=== PATIENT | female | born 1970 | race African-American/Black ===

== ENCOUNTER 2018-04-25 18:43 | Emergency (ER) | payer OTHER ==
[~2018-04-25] VITALS: Ht 167.6 cm; Wt 62.6 kg
[~2018-04-25 18:43] MED LIST: ALPR-475 PO; AMLO5TAB2 PO; CEFD300C37 PO; CIPR500T87 PO; HYDR-3240 PO; LORA-446 PO; METR500T PO; ONDA4TAB7 PO; OXYC-302 PO; OXYC1TAB PO; PROP40TA PO; SULF1TAB24 PO
[2018-04-25 18:47] VITALS: BP 158/100
== END 2018-04-25 19:49 | disposition home or self-care (01) ==
LOC: ED 19:10
DX: S92.514A Nondisplaced fracture of proximal phalanx of right lesser toe(s), initial encounter for closed fracture (principal); G43.909 Migraine, unspecified, not intractable, without status migrainosus; C80.1 Malignant (primary) neoplasm, unspecified; W22.03XA Walked into furniture, initial encounter; Y93.89 Activity, other specified; Y99.8 Other external cause status; Y92.009 Unspecified place in unspecified non-institutional (private) residence as the place of occurrence of the external cause
CPT/HCPCS: 99284

== ENCOUNTER → 2018-05-11 | Outpatient (CLI) | payer OTHER ==
[~2018-05-11] MED LIST changes: -AMLO5TAB2 PO; +AMLO5TAB7 PO; +BUTA-177 PO
== END | disposition home or self-care (01) ==
LOC: STAR 13:07
PROVIDERS: ATTEND Specialist
DX: Z02.9 Encounter for administrative examinations, unspecified (principal)

== ENCOUNTER 2018-05-17 08:00 | Day surgery (SDC) | payer OTHER ==
[2018-05-11 14:06] VITALS: BP 152/96
[~2018-05-17] VITALS: Ht 167.6 cm; Wt 61.7 kg
[2018-05-17] MEDS ORDERED: LACTATED RINGERS 1,000 ML IV SCH (08:34)
[2018-05-17 08:38] VITALS: BP 152/96
[2018-05-17] MEDS ORDERED: LIDOCAINE-MPF 1%, 2ML INFIL ONE (09:00)
[2018-05-17] MEDS ORDERED: THROMBIN 5,000 UNIT VIAL TP ONE (09:57)
[2018-05-17] MEDS ORDERED: BUPIVACAINE 0.25% ONE (09:57)
[2018-05-17] MEDS ORDERED: MIDAZOLAM 1 MG/ML, 2ML ONE (09:58)
[2018-05-17] MEDS ORDERED: FENTANYL PF 100 MCG/2ML ONE (09:58)
[2018-05-17] MEDS ORDERED: DEXAMETHASONE 4 MG/ML, 1ML ONE (10:06)
[2018-05-17] MEDS ORDERED: ONDANSETRON 2MG/ML, 2ML ONE (10:06)
[2018-05-17] MEDS ORDERED: PROPOFOL 10 MG/ML, 20ML ONE (10:06)
[2018-05-17] MEDS ORDERED: BUPIVACAINE/PF-EPI 0.25% 1:200K ONE (10:17)
[2018-05-17] MEDS ORDERED: ONDANSETRON 2MG/ML, 2ML IV PRN (10:30)
[2018-05-17] MEDS ORDERED: MORPHINE SULFATE 4 MG/ML, 1ML IVPush PRN (10:30)
[2018-05-17] MEDS ORDERED: LABETALOL 5MG/ML, 20ML IV PRN (10:30)
[2018-05-17] MEDS ORDERED: FENTANYL PF 100 MCG/2ML IV PRN (10:30)
[2018-05-17] MEDS ORDERED: OXYcodone 5 MG/5 ML ORAL.SOL UDC PO PRN (10:30)
[2018-05-17] MEDS ORDERED: PROMETHAZINE 25 MG/ML, 1ML IV PRN (10:30)
[2018-05-17] MEDS ORDERED: hydrALAzine 20 MG/ML, 1ML IV PRN (10:30)
[2018-05-17] MEDS ORDERED: ACETAMINOPHEN 325 MG TABLET PO PRN (10:30)
[2018-05-17] MEDS ORDERED: PROMETHAZINE 25 MG/ML, 1ML IM PRN (10:30)
== END 2018-05-17 12:50 | disposition home or self-care (01) ==
LOC: OUT 08:00
PROVIDERS: ATTEND Specialist
DX: D06.1 Carcinoma in situ of exocervix (principal); N88.2 Stricture and stenosis of cervix uteri; I10 Essential (primary) hypertension; F41.9 Anxiety disorder, unspecified; G43.909 Migraine, unspecified, not intractable, without status migrainosus; Z85.048 Personal history of other malignant neoplasm of rectum, rectosigmoid junction, and anus; Z98.890 Other specified postprocedural states
CPT/HCPCS: 57522; 88305; 88342; J1100; J2250; J2405; J2704; J3010; J7120; J3490; G0461

== ENCOUNTER 2018-12-15 21:21 | Emergency (ER) | payer OTHER ==
[~2018-12-15] VITALS: Ht 167.6 cm; Wt 59.9 kg
[~2018-12-15 21:21] MED LIST changes: +AMLO-150 PO; -AMLO5TAB7 PO
[2018-12-15] MEDS ORDERED: MORPHINE SULFATE 4 MG/ML, 1ML ONE (21:58)
[2018-12-15] MEDS ORDERED: ONDANSETRON 2MG/ML, 2ML ONE (21:58)
[2018-12-15] MEDS ORDERED: MORPHINE SULFATE 4 MG/ML, 1ML IVPush PRN (22:00)
[2018-12-15] MEDS ORDERED: ONDANSETRON 2MG/ML, 2ML IVPush ONE (22:00)
[2018-12-15 22:02] LABS: MEAN CORPUSCULAR HEMOGLOBIN 30.9 pg (27.0-34.8); MEAN CORPUSCULAR HGB CONC 33.8 g/dL (32.4-35.8); MEAN CORPUSCULAR VOLUME 91.4 fL (80-100); MEAN PLATELET VOLUME 7.8 fL (7.4-10.4); PLATELET COUNT 318 x10^3/uL (130-400)
[2018-12-15 22:04] LABS: MICROSCOPIC NOT IND
[2018-12-15 22:07] LABS: CULTURE INDICATED? NO
[2018-12-15 22:12] LABS: ALANINE AMINOTRANSFERASE 22 U/L (12-78); ALBUMIN 4.1 g/dL (3.4-5.0); ANION GAP 6 mmol/L (5-15); CHLORIDE 109 mmol/L (98-107); CREATININE 0.81 mg/dL (0.55-1.02)
[2018-12-15 22:14] LABS: ALKALINE PHOSPHATASE 60 U/L (45-117); BILIRUBIN,TOTAL 0.4 mg/dL (0.2-1.0); TOTAL PROTEIN 7.8 g/dL (6.4-8.2)
--- NOTE | 2018-12-15 22:21 | NUR ---
PT PRESENTS TO ED WITH C/O EPIGASTRIC PAIN WITH NAUSEA X 3 DAYS. EKG NOT DONE IN TRIAGE, PT SYMPTOMS DISCUSSED WITH EDMD SIMONE. PER MD, PT DOES NOT NEED EKG AT THIS TIME. PT ATTACHED TO ALL MONTIORS. PT IS NORMAL SINUS RHYTHM ON PATIENT ACCESS DIRECTOR, NO ECTOPY. PT REPORTS PAIN IS 7/10 AT TIME OF MORPHINE ADMINISTRATION. PIV PLACED, PT MEDICATED PER EMAR. TOLERATED WELL. PT IN CT AT THIS TIME.
[2018-12-15 22:33] LABS: BASOPHILS # (AUTO) 0.03 x10^3/uL (0-0.1); BASOPHILS % (AUTO) 0 % (0-1); EOSINOPHILS # (AUTO) 0.03 x10^3/uL (0-0.4); EOSINOPHILS % (AUTO) 1 % (1-7); LYMPHOCYTES # (AUTO) 2.09 x10^3/uL (1-3.4); LYMPHOCYTES % (AUTO) 29 % (22-44); MD SCAN; MONOCYTES % (AUTO) 6 % (2-9); NEUTROPHILS # (AUTO) 4.56 x10^3/uL (1.8-6.8); NEUTROPHILS % (AUTO) 64 % (42-75)
[2018-12-15] MEDS ORDERED: OMNIPAQUE 350 MG/ML, 100ML BOTTLE ONE (22:36)
--- NOTE | 2018-12-15 22:51 | NUR ---
PT BACK FROM CT, PT A&O, RESPS EVEN AND UNLABORED. 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 PT REPORTS EPIGASTRIC PAIN LEVEL 3/10, DECLINES NEED FOR ADDITIONAL MEDICATION. PT DENIES NAUSEA, NO VOMITING. ALL MONITORS IN PLACE, CALL LIGHT IN REACH. S/O AT BEDSIDE. AWAITING CT READ AND DISPO.
[2018-12-15 23:24] VITALS: BP 142/92
--- NOTE | 2018-12-15 23:25 | NUR ---
pt given dc instructions and script. pt educated regarding dc rx for prev pac. pt educated not to drive tonight d/t meds given. pt a&o, resps even and unlabored. piv dc'd with tip intact. no n/v at time of dc. no complaint at dc. pt amb to dc desk with steady gait, accompanied by .
== END 2018-12-15 23:26 | disposition home or self-care (01) ==
LOC: ED 21:40
DX: K29.00 Acute gastritis without bleeding (principal); K25.3 Acute gastric ulcer without hemorrhage or perforation
CPT/HCPCS: 36415; 74177; 80053; 81003; 83690; 85025; 86677; 96374; 96375; 99284; J2405; Q9967

== ENCOUNTER 2020-06-05 10:12 | Emergency (ER) | payer OTHER ==
[~2020-06-05] VITALS: Ht 167.6 cm; Wt 63.0 kg
[~2020-06-05 10:12] MED LIST changes: -ALPR-475 PO; +ALPR0.5T7 PO
[2020-06-05] MEDS ORDERED: HYDROmorphone 1 MG/ML, 1ML INJ IVPush PRN (11:00)
[2020-06-05] MEDS ORDERED: HYDROmorphone 1 MG/ML, 1ML INJ ONE (11:16)
[2020-06-05] MEDS ORDERED: ONDANSETRON 2MG/ML, 2ML ONE (11:16)
[2020-06-05 11:32] LABS: BASOPHILS % (AUTO) 0 % (0-1); EOSINOPHILS % (AUTO) 1 % (1-7); LYMPHOCYTES % (AUTO) 34 % (22-44); MEAN CORPUSCULAR HEMOGLOBIN 30.3 pg (27.0-34.8); MONOCYTES % (AUTO) 5 % (2-9); NEUTROPHILS % (AUTO) 61 % (42-75); PLATELET COUNT 358 x10^3/uL (130-400); RED BLOOD COUNT 4.55 x10^6/uL (3.82-5.3); RED CELL DISTRIBUTION WIDTH 13.4 % (9.6-15.2)
--- NOTE | 2020-06-05 11:39 | NUR ---
ATTEMPTED TO START IV X2, UNSUCCESSFUL. WILL FIND TECH TO ATTEMPT IV PLACEMENT FOR MEDS.
[2020-06-05 11:44] LABS: ALBUMIN 3.8 g/dL (3.4-5.0); ANION GAP 7 mmol/L (5-15); CALCIUM 9.4 mg/dL (8.5-10.1); CHLORIDE 106 mmol/L (98-107)
[2020-06-05 11:48] LABS: ALANINE AMINOTRANSFERASE 24 U/L (12-78); ALKALINE PHOSPHATASE 88 U/L (45-117); BILIRUBIN,TOTAL 0.7 mg/dL (0.2-1.0); CREATININE 0.92 mg/dL (0.55-1.02)
[2020-06-05 11:58] LABS: MD NO
[2020-06-05] MEDS ORDERED: ONDANSETRON 2MG/ML, 2ML IVPush ONE (12:00)
[2020-06-05] MEDS ORDERED: SODIUM CHLORIDE FLUSH 10ML SYR IVF ONE (12:00)
[2020-06-05 14:25] VITALS: BP 136/74
[2020-06-05 14:26] LABS: MICROSCOPIC AUTO
== END 2020-06-05 15:44 | disposition home or self-care (01) ==
LOC: ED 12:21
DX: R10.84 Generalized abdominal pain (principal); R11.2 Nausea with vomiting, unspecified; R19.7 Diarrhea, unspecified; Z85.048 Personal history of other malignant neoplasm of rectum, rectosigmoid junction, and anus
CPT/HCPCS: 36415; 74021; 80053; 81001; 85025; 87086; 96374; 96375; 99285; J1170; J2405

== ENCOUNTER 2020-07-16 05:49 | Day surgery (SDC) | payer OTHER ==
[2020-07-15 08:53] LABS: BASOPHILS % (AUTO) 0 % (0-1); EOSINOPHILS % (AUTO) 1 % (1-7); LYMPHOCYTES % (AUTO) 31 % (22-44); MEAN CORPUSCULAR HEMOGLOBIN 30.3 pg (27.0-34.8); MEAN PLATELET VOLUME 8.4 fL (7.4-10.4); MONOCYTES % (AUTO) 5 % (2-9); NEUTROPHILS % (AUTO) 64 % (42-75); PLATELET COUNT 324 x10^3/uL (130-400); RED BLOOD COUNT 4.56 x10^6/uL (3.82-5.3); RED CELL DISTRIBUTION WIDTH 13.8 % (9.6-15.2)
[2020-07-15 08:57] LABS: MD NO
[2020-07-15 08:59] LABS: INTERNATIONAL NORMALIZED RATIO 0.95 (0.93-1.1); PROTHROMBIN TIME 10.1 Seconds (9.6-11.5)
[2020-07-15 09:01] LABS: ALBUMIN 4.1 g/dL (3.4-5.0); CALCIUM 9.3 mg/dL (8.5-10.1)
[2020-07-15 09:06] LABS: ALANINE AMINOTRANSFERASE 13 U/L (12-78); ALKALINE PHOSPHATASE 69 U/L (45-117); BILIRUBIN,TOTAL 0.6 mg/dL (0.2-1.0); CREATININE 0.89 mg/dL (0.55-1.02); TOTAL PROTEIN 8.1 g/dL (6.4-8.2)
[2020-07-15 09:08] LABS: ANION GAP 5 mmol/L (5-15); CHLORIDE 109 mmol/L (98-107)
[~2020-07-16] VITALS: Ht 167.6 cm; Wt 63.0 kg
[~2020-07-16 05:49] MED LIST changes: +AMLO-211 PO; +PROP80TA PO
[2020-07-16 06:32] VITALS: BP 133/87
[2020-07-16] MEDS ORDERED: LACTATED RINGERS 1,000 ML IV SCH (07:00)
[2020-07-16] MEDS ORDERED: CHLORHEXIDINE 15 ML UDC MM ONE (07:00)
[2020-07-16] MEDS ORDERED: CEFOTETAN PMX 2GM/50ML 50 ML IVPB ONE (07:00)
[2020-07-16] MEDS ORDERED: POTA20TA89 PO (07:01)
[2020-07-16] MEDS ORDERED: FENTANYL PF 100 MCG/2ML ONE (07:07)
[2020-07-16] MEDS ORDERED: MIDAZOLAM 1 MG/ML, 2ML ONE (07:07)
[2020-07-16] MEDS ORDERED: DEXAMETHASONE 4 MG/ML, 1ML ONE ×2 (07:18)
[2020-07-16] MEDS ORDERED: PROPOFOL 10 MG/ML, 20ML ONE (07:18)
[2020-07-16] MEDS ORDERED: KETOROLAC 30 MG/1 ML ONE (07:19)
[2020-07-16] MEDS ORDERED: ONDANSETRON 2MG/ML, 2ML ONE (07:19)
[2020-07-16] MEDS ORDERED: EPHEDRINE 50 MG/ML, 1ML IVPush PRN (07:30)
[2020-07-16] MEDS ORDERED: MEPERIDINE/PF 25MG/0.5ML IVPush PRN (07:30)
[2020-07-16] MEDS ORDERED: ACETAMINOPHEN 325 MG TABLET PO PRN (07:30)
[2020-07-16] MEDS ORDERED: LABETALOL 5MG/ML, 20ML IV PRN (07:30)
[2020-07-16] MEDS ORDERED: PROMETHAZINE 25 MG/ML, 1ML IVPush PRN (07:30)
[2020-07-16] MEDS ORDERED: HYDROmorphone 1 MG/ML, 1ML INJ IVPush PRN (07:30)
[2020-07-16] MEDS ORDERED: OXYcodone 5 MG/5 ML ORAL.SOL UDC PO PRN (07:30)
[2020-07-16] MEDS ORDERED: FENTANYL PF 100 MCG/2ML IV PRN (07:30)
[2020-07-16] MEDS ORDERED: hydrALAzine 20 MG/ML, 1ML IV PRN (07:30)
[2020-07-16] MEDS ORDERED: ONDANSETRON 2MG/ML, 2ML IVPush PRN (07:30)
[2020-07-16] MEDS ORDERED: EPHEDRINE 50 MG/ML, 1ML ONE (08:04)
[2020-07-16] MEDS ORDERED: GLYCOPYRROLATE 0.2MG/1ML, 5ML ONE (08:11)
== END 2020-07-16 09:55 | disposition home or self-care (01) ==
LOC: OUT 05:49
PROVIDERS: ATTEND Specialist
DX: R87.613 High grade squamous intraepithelial lesion on cytologic smear of cervix (HGSIL) (principal); N88.2 Stricture and stenosis of cervix uteri; I10 Essential (primary) hypertension; Z20.828 Contact with and (suspected) exposure to other viral communicable diseases; Z98.890 Other specified postprocedural states; Z79.899 Other long term (current) drug therapy; Z85.048 Personal history of other malignant neoplasm of rectum, rectosigmoid junction, and anus; Z82.49 Family history of ischemic heart disease and other diseases of the circulatory system; Z80.0 Family history of malignant neoplasm of digestive organs
CPT/HCPCS: 36415; 57520; 71046; 80053; 85025; 85610; 85730; 86850; 86900; 86923; 87635; 88305; 88307; 88341; 88342; 93005; J1100; J1885; J2250; J2405; J2704; J3010; J7120